=== PATIENT | male | born 1990 | race Caucasian/White ===

== ENCOUNTER 2019-04-18 20:05 | Emergency (ER) | payer MEDICAID, OTHER ==
[~2019-04-18] VITALS: Ht 172.7 cm; Wt 70.3 kg
[2019-04-18 23:11] VITALS: BP 145/79
== END 2019-04-18 23:14 | disposition home or self-care (01) ==
LOC: ER 20:09
DX: S02.31XA Fracture of orbital floor, right side, initial encounter for closed fracture (principal); F17.210 Nicotine dependence, cigarettes, uncomplicated; Z87.442 Personal history of urinary calculi; Z88.1 Allergy status to other antibiotic agents; V87.8XXA Person injured in other specified noncollision transport accidents involving motor vehicle (traffic), initial encounter; Y93.55 Activity, bike riding; Y92.488 Other paved roadways as the place of occurrence of the external cause; Y99.8 Other external cause status
CPT/HCPCS: 70486

== ENCOUNTER 2023-11-17 19:55 | Emergency (ER) | payer OTHER | END 2023-11-17 20:31 | disposition left against medical advice (07) | LOC: ER 19:55 | DX: R10.12 Left upper quadrant pain (principal); Z53.21 Procedure and treatment not carried out due to patient leaving prior to being seen by health care provider ==